=== PATIENT | male | born 1985 | race Two or more races ===

== ENCOUNTER 2023-11-21 10:43 | Emergency (ER) | payer MEDICAID, OTHER ==
[~2023-11-21] VITALS: Ht 177.8 cm; Wt 89.9 kg
[2023-11-21] MEDS ORDERED: CYCL-839 PO (14:43)
[2023-11-21] MEDS ORDERED: NAP500T PO (14:43)
[2023-11-21 15:00] VITALS: BP 112/77; TEMP 98.2
[2023-11-21 16:05] VITALS: PULSE 83; RESP 19; O2SAT 99
== END 2023-11-21 15:45 | disposition home or self-care (01) ==
LOC: ER 10:43
DX: M79.10 Myalgia, unspecified site (principal); Z79.899 Other long term (current) drug therapy; V89.2XXA Person injured in unspecified motor-vehicle accident, traffic, initial encounter; Y93.89 Activity, other specified; Y92.89 Other specified places as the place of occurrence of the external cause; Y99.8 Other external cause status